=== PATIENT | male | born 1960 | race Caucasian/White ===

== ENCOUNTER 2020-09-08 14:15 | Inpatient (IN) | payer SELFPAY ==
[~2020-09-08] VITALS: Ht 193 cm; Wt 81.8 kg
[2020-09-08 15:04] LABS: BASO # 0.1 (0.0-0.2); BASO % 0.7 % (0.0-2.0); EOS # 0.1 (0.0-0.7); GRAN # 6.4 (1.4-6.5); GRAN % 79.7 % (42.2-75.2); HEMATOCRIT 30.8 % (42.0-52.0); HEMOGLOBIN 10.4 g/dl (13.5-18.0); LYMPH # 0.6 (1.2-3.4); LYMPH % 7.1 % (20.0-51.0); MEAN CELL VOLUME 108 fl (80.0-100.0); MEAN CORPUSCULAR HEMOGLOBIN 36 pg (27.0-31.0); MEAN CORPUSCULAR HGB CONC 34 g/dl (33.0-37.0); MONO # 0.9 (0.1-0.6); RED BLOOD COUNT 2.86 M/mm3 (4.20-5.60); REDCELL DISTRIBUTION WIDTH-CV 14.4 % (11.5-14.5)
[2020-09-08 15:05] LABS: PLATELET COUNT 47 K/mm3 (130-400)
[2020-09-08 15:18] LABS: ALBUMIN 3.1 gm/dL (3.5-5.0); BILIRUBIN,TOTAL 7.7 mg/dL (0.0-1.0); C-REACTIVE PROTEIN 1.1 mg/dL (0.0-0.9); CALCIUM 8.3 mg/dL (8.4-10.2); CREATININE, serum 0.9 (0.66-1.25); POTASSIUM 3.6 mmol/L (3.4-5.0)
[2020-09-08 15:35] LABS: COLLECTION METHOD CLEAN CATCH
[2020-09-08 15:41] LABS: MUCOUS Present /lpf; PH 5 (5-8); SQUAMOUS EPITHELIAL 0-2 /hpf; URINE APPEARANCE Hazy; URINE BACTERIA Occasional /hpf; URINE BILIRUBIN Positive (NEGATIVE); URINE BLOOD 1+ (NEGATIVE); URINE COLOR Amber; URINE GLUCOSE Negative (NEGATIVE); URINE KETONE Negative (NEGATIVE); URINE LEUKOCYTE ESTERASE 2+ (NEGATIVE); URINE NITRATE Negative (NEGATIVE); URINE PROTEIN(semi-quant) Negative (NEGATIVE); URINE UROBILINOGEN >=4.0 mg/dL (NEGATIVE)
[2020-09-08] MEDS ORDERED: CEPHALEXIN500 M1 PO ×2 (18:11)
--- NOTE | 2020-09-08 19:13 | NUR ---
RECEIVED REPORT FROM ED NURSE, TEODORA. AWAITING FOR PATIENT TO ARRIVE TO ROOM 343 FOR ADMIT.
--- NOTE | 2020-09-08 19:23 | NUR ---
PATIENT TO ROOM PER ED CART WITH PCT PRESENT. OBSERVED PATIENT WITH TREMORS, AND WEAK/MAX 1-2 ASST BY STAFF FOR STAND/PIVOT TRANSFER FROM CART TO HOSP BED. REPORTS HAS SOME CHILLING SENSATIONS, SKIN WARM TO TOUCH. DENIES CHEST PAIN/SOA/NAUSEA AT THIS TIME. REPORTS HAD SEIZURES WHEN GOING THROUGH ETOH WITHDRAWAL IN NOV 2019. TELE IN PLACE. INT TO RAC.
[2020-09-08 19:27] VITALS: BP 121/68; PULSE 95; TEMP 99.2
[2020-09-08 22:00] VITALS: BP 113/58; PULSE 93; TEMP 99.9
[2020-09-08 22:04] LABS: INR 1.8 (0.8-3.0); PROTHROMBIN TIME 19.9 SECONDS (9.7-12.8)
[2020-09-08 22:06] LABS: PARTIAL THROMBOPLASTIN TIME 39.5 SECONDS (26.0-37.0)
[2020-09-09] VITALS (13 sets, daily range): BP systolic 114–156; BP diastolic 60–87; PULSE 74–108; TEMP 98.1–101.2
--- NOTE | 2020-09-09 00:35 | NUR ---
PATIENT SLEEPING, VERY DROWSY WHEN AWAKE, SPEECH SLOW BUT CLEAR.
[2020-09-09 06:56] LABS: BASO # 0.1 (0.0-0.2); BASO % 0.9 % (0.0-2.0); EOS # 0.1 (0.0-0.7); EOS % 1.8 % (0-4.0); GRAN # 3.5 (1.4-6.5); GRAN % 63.9 % (42.2-75.2); LYMPH # 1.1 (1.2-3.4); LYMPH % 20.5 % (20.0-51.0); MEAN CELL VOLUME 107 fl (80.0-100.0); MEAN CORPUSCULAR HGB CONC 35 g/dl (33.0-37.0); MEAN PLATELET VOLUME 10.6 fl (7.4-10.4); MONO # 0.7 (0.1-0.6); MONO % 12.5 % (1.7-9.3); REDCELL DISTRIBUTION WIDTH-CV 14.5 % (11.5-14.5)
[2020-09-09 06:57] LABS: ALBUMIN 2.6 gm/dL (3.5-5.0); BILIRUBIN,TOTAL 7.1 mg/dL (0.0-1.0); CALCIUM 7.5 mg/dL (8.4-10.2); CREATININE, serum 0.77 (0.66-1.25); POTASSIUM 3.2 mmol/L (3.4-5.0); TOTAL PROTEIN 7.8 gm/dL (6.4-8.2)
[2020-09-09 06:59] LABS: HEMATOCRIT 27.8 % (42.0-52.0); HEMOGLOBIN 9.6 g/dl (13.5-18.0); MEAN CORPUSCULAR HEMOGLOBIN 37 pg (27.0-31.0)
[2020-09-09 07:01] LABS: PLATELET COUNT 38 K/mm3 (130-400)
--- NOTE | 2020-09-09 07:21 | NUR ---
CHANGE OF SHIFT REPORT GIVEN TO DAY SHIFT NURSE, AGATA WESTON.
--- NOTE | 2020-09-09 07:37 | NUR ---
YAZ HOOVER CALLED AND NOTIFIED OF CRITICAL PLATLET LEVEL OF 38. NO ORDERS GIVEN AT THIS TIME.
--- NOTE | 2020-09-09 09:10 | NUR ---
PATIENT TAKEN TO RADIOLOGY FOR IMAGING VIA BED. WILL WAIT FOR PATIENT ARRIVAL BACK TO ROOM 343.
--- NOTE | 2020-09-09 09:30 | NUR ---
PATIENT ARRIVED BACK TO ROOM 343 VIA BED FROM RADIOLOGY. PATIENT SETTELED INTO ROOM. CALL LIGHT WITHIN REACH.
--- NOTE | 2020-09-09 10:21 | NUR ---
YAZ DENNY PRESENT IN ROOM. PO TYLENOL GIVEN FOR LOW BACK PAIN RATED A 2/10. PATIENT UNABLE TO DESCRIBE PAIN, BUT STATES THAT IT IS CONSTANT. MORNING MEDICATIONS ADMINISTERED. THIS NURSE PRESENT WHILE IV PHYTONADIONE INFUSING. SHIFT ASSESSMENT COMPLETE. CALL LIGHT AND URINAL WITHIN REACH. NO ATIVAN NEEDED PER 0800 DETOX PROTOCOL.
--- NOTE | 2020-09-09 10:33 | NUR ---
PATIENT TOLERATED VITAMIN K INFUSION WITHOUT ANY ADVERSE REACTIONS.
--- NOTE | 2020-09-09 12:48 | NUR ---
First visit from the credit charge authorizer. Patient was asleep. Insurance Advisor prayed for the patient while standing outside their door. No other needs right now.
--- NOTE | 2020-09-09 17:10 | NUR ---
Senior Programmer met with patient to discuss discharge planning. Patient keeps his eyes closed during intake however is agreeable to answer questions. Patient lives in [place] and does not currently have a primary care physician. Patient is agreeble to have appointment made at [facility]. Patient did not have a preferred pharmacy as he states he normally does not take any medications. Patient does not use any DME and reports independence with ADLS. Patient does not normally wear oxygen but is currently requiring it. Patient lists his father, Adamaris (ph#[phone]) as an emergency contact. Patient is interested in completing DPOA, however does not want to complete it at this time. Patient plans to return home upon discharge and advised he has a ride home. Discharge Plan: Home
--- NOTE | 2020-09-09 18:28 | NUR ---
PATIENT HAD LARGE INCONTINENT URINE EPISODE. PATIENT CLEANED UP, NEW GOWN AND LINENS ON. PATIENT REPOSITIONED IN BED. BUE AND BLE ELEVATED ON PILLOWS. PATIENT SAT UP TO EAT DINNER. CALL LIGHT IN REACH. NO ADDITIONAL NEEDS AT THIS TIME.
--- NOTE | 2020-09-09 23:53 | NUR ---
Patient assessed aor1999. Sleepy, but awakens easliy. Alert and oriented x 4. Denies having pain and discomfort at this time. Peripheral IV to right AC with fluids running per orders. Denies having SOB and dyspnea. LS CTA in upper lobes, diminished in lower. Respirations even and unlabored. HRR. Telemetry in place. Capillary refill less than 3 seconds. Non-tenting skin turgor. BSAx4. Abdomen soft and non-tender. 1+ edema BLE. High fall risk precautions in place. Voices no questions, needs, or concerns at this time. Resting in bed with call light within reach.
[2020-09-10 01:56] LABS: TOTAL IRON BINDING CAPACITY 188 ug/dL (261-462)
[2020-09-10 02:44] LABS: IRON,SERUM 126 ug/dL (35-150)
[2020-09-10 04:00] VITALS: BP 135/75; PULSE 92; TEMP 97.1; TEMP 971
--- NOTE | 2020-09-10 05:15 | NUR ---
Patient has been resting in bed with call light within reach most of shift. Has been sleepy, but awakens easily. Denies having pain and discomfort. Patient has not been scoring high enough on detox protocol to receive PRN Ativan. Voices no questions, needs, or concerns at this time. Resting in bed with call light within reach.
[2020-09-10 06:29] VITALS: BP 138/72; PULSE 78; TEMP 97.6
[2020-09-10 06:57] LABS: BASO % 0.2 % (0.0-2.0); EOS % 0.3 % (0-4.0); GRAN # 4.1 (1.4-6.5); GRAN % 65.9 % (42.2-75.2); LYMPH # 1.3 (1.2-3.4); LYMPH % 21.3 % (20.0-51.0); MEAN CELL VOLUME 108 fl (80.0-100.0); MEAN CORPUSCULAR HGB CONC 35 g/dl (33.0-37.0); MEAN PLATELET VOLUME 10.9 fl (7.4-10.4); MONO # 0.7 (0.1-0.6); MONO % 11.7 % (1.7-9.3); REDCELL DISTRIBUTION WIDTH-CV 14.4 % (11.5-14.5)
[2020-09-10 06:58] LABS: HEMATOCRIT 26.9 % (42.0-52.0); HEMOGLOBIN 9.3 g/dl (13.5-18.0); MEAN CORPUSCULAR HEMOGLOBIN 37 pg (27.0-31.0)
[2020-09-10 07:00] LABS: PLATELET COUNT 47 K/mm3 (130-400)
[2020-09-10 07:11] LABS: ALBUMIN 2.5 gm/dL (3.5-5.0); BILIRUBIN,TOTAL 7.1 mg/dL (0.0-1.0); CALCIUM 7.9 mg/dL (8.4-10.2); CREATININE, serum 0.73 (0.66-1.25); POTASSIUM 3.3 mmol/L (3.4-5.0); TOTAL PROTEIN 7.7 gm/dL (6.4-8.2)
[2020-09-10 07:18] LABS: INR 1.7 (0.8-3.0); PROTHROMBIN TIME 19.1 SECONDS (9.7-12.8)
[2020-09-10 07:31] VITALS: BP 128/68; PULSE 79; TEMP 97.8
--- NOTE | 2020-09-10 08:00 | NUR ---
Patient resting in bed at this time. Patient is alert and oriented, answers questions appropriately. Patient denies pain or needs, call light within reach.
[2020-09-10 10:20] VITALS: BP 122/76; PULSE 87; TEMP 98
[2020-09-10] MEDS ORDERED: ROXICODONE 55 MG/TAB PO (11:52)
[2020-09-10] MEDS ORDERED: THIAMINE 1100 MG/TAB PO (11:53)
[2020-09-10] MEDS ORDERED: PREDNISOLO15 MG/5 M3 PO (11:53)
[2020-09-10] MEDS ORDERED: FOLIC ACID 11 MG/TA1 PO (11:53)
[2020-09-10] MEDS ORDERED: OMNICEF 300MG300 MG PO (11:54)
[2020-09-10] MEDS ORDERED: DUO-KAPS1 CAP PO (11:54)
[2020-09-10] MEDS ORDERED: K-DUR 10 MEQ T10 MEQ PO (11:55)
[2020-09-10 11:57] VITALS: BP 151/82; PULSE 88; TEMP 97.9
--- NOTE | 2020-09-10 12:30 | NUR ---
Patient up with x3 assist, walker and gait belt. Patient is very shaky, obvious tremors affecting whole body. Patient ambulated from bedside to bathroom door, patient needed recliner moved behind him as he was unable to turn around and return to bed. Patient denied pain, just states he feels weak and shaky. Denies further needs, call light within reach.
--- NOTE | 2020-09-10 15:04 | NUR ---
Cosmetic Sales Consultant attended clinical rounds with the team and patient is medically cleared for discharge, however has not been able to walk. DAVID collaborated with PTOswaldo and PTApolinar who do not feel patient is safe to return home at this time. Patient is currently self pay. DAVID consulted financial counseling to request a Medicaid application be completed for patient. DAVID contacted Rosa, IPR Director to inquire if they could take patient on a aleksandr basis. DAVID met with patient to follow up on DPOA-HC. Patient would like to complete DPOA-HC and designate his mother, Josefina (ph#[phone]). Patient declined to designate an alternate. Patient verbalized understanding of DPOA-HC and provided his signature on DPOA-HC form. DAVID and University TutorEvelia provided witness signature. DAVID provided original and copies to patient, then placed copy in patient's chart. Later on, DAVID followed up again with patient and patient's father, Adamaris (ph#[phone]). Patient's father, Adamaris advised that the week prior to patient admitting to the hospital, he just was sitting at home in his chair. Adamaris advised that patient's trailer is in very poor condition. DAVID made report to APS (intake #[id number]). DAVID followed up with Rosa IPR Director who advised administration gave approval for patient to admit to [facility]. Patient to admit to [facility] today. DAVID contacted patient's father and updated him. Discharge Plan: [facility]
[2020-09-10 15:15] VITALS: BP 150/85; PULSE 112; TEMP 98.7
--- NOTE | 2020-09-10 17:49 | NUR ---
Patient moved to IPR per orders. Patient belongings and gathered and moved to new room.
[2020-09-10 21:26] LABS: TRICYCLIC ANTIDEPRESS URINE NEGATIVE
[2020-09-11 11:50] LABS: ANA SCREEN with REFLEX Negative (Negative)
[2020-09-16 15:13] LABS: ANTISMOOTH MUSCLE ANTIBODY Negative (Negative)
[2020-09-17 02:27] LABS: CERULOPLASMIN 21 mg/dL (20-60)
== END 2020-09-10 17:55 | DRG 92 ==
LOC: COL.ER 14:15 → SURG 18:26
PROVIDERS: Family Medicine; Internal Medicine Gastroenterology; Student in an Organized Health Care Education/Training Program; ADMIT Student in an Organized Health Care Education/Training Program
DX: G72.1 Alcoholic myopathy (principal); K76.6 Portal hypertension; E87.1 Hypo-osmolality and hyponatremia; N39.0 Urinary tract infection, site not specified; D64.9 Anemia, unspecified; F10.10 Alcohol abuse, uncomplicated; R53.81 Other malaise; M47.9 Spondylosis, unspecified; M51.9 Unspecified thoracic, thoracolumbar and lumbosacral intervertebral disc disorder; D69.6 Thrombocytopenia, unspecified; R74.01 Elevation of levels of liver transaminase levels; K70.30 Alcoholic cirrhosis of liver without ascites; E87.6 Hypokalemia; K70.10 Alcoholic hepatitis without ascites; M48.061 Spinal stenosis, lumbar region without neurogenic claudication; G89.29 Other chronic pain; Z98.52 Vasectomy status
CPT/HCPCS: 99223-AI; 99233-AI; J0696; J2060; J2405; J3411; J3430; J3475; J7030; J7120; J7510; Q9967

== ENCOUNTER 2020-09-10 15:09 | Inpatient (IN) | payer SELFPAY ==
[~2020-09-10] VITALS: Ht 193 cm; Wt 84.9 kg
[~2020-09-10 15:09] MED LIST: CEPHALEXIN500 M1 PO; DUO-KAPS1 CAP PO; FOLIC ACID 11 MG/TA1 PO; K-DUR 10 MEQ T10 MEQ PO; OMNICEF 300MG300 MG PO; PREDNISOLO15 MG/5 M3 PO; ROXICODONE 55 MG/TAB PO; THIAMINE 1100 MG/TAB PO
--- NOTE | 2020-09-10 17:55 | NUR ---
Patient arrived to [facility] from surgical via wheelchair. Patient transferred to bed with walker, gaitbelt, and max 2 assist. Patient denies pain or needs, call light within reach.
--- NOTE | 2020-09-10 19:00 | NUR ---
RECEIVED CHANGE OF SHIFT REPORT FROM DAY SHIFT NURSE.
[2020-09-10 19:25] VITALS: BP 152/85; PULSE 92; TEMP 98.6
--- NOTE | 2020-09-10 20:00 | NUR ---
DENIES CHEST PAIN/SOA OR ANY NEEDS AT THIS TIME. BED ALARM ON WHEN IN BED.
[2020-09-11 05:08] VITALS: BP 121/75; PULSE 89; TEMP 97.6
--- NOTE | 2020-09-11 07:29 | NUR ---
CHANGE OF SHIFT REPORT GIVEN TO DAY SHIFT NURSEKERI RN.
--- NOTE | 2020-09-11 15:17 | NUR ---
Architecture Analyst met with patient and patient's parents, Adamaris (ph#[phone]) and Josefina (ph#[phone]) to complete intake as patient is new to [facility]. Patient lives alone in [place] and does not currently have a primary care physician. DAVID advised patient that an appointment was secured at [facility] on 10/31/20 at 1000. DAVID spoke with ENRICO Rios who advised the appointment is in patient's chart and discharge orders. Patient does not normally take any prescription medications. Patient has a cane and walker at home but isn't sure if the walker is a good fit. Patient's parents report they will bring it in for therapy to evaluate. Patient has appointment his step-motherJosefina as DPOA-HC and copy was placed in chart on the acute side. DAVID has consulted Financial Counseling for patient. Patient's step motherJosefina assisted patient in completing Financial Assistance Application, which DAVID scanned and emailed back to Paige Financial Counselor. DAVID will continue to follow.
[2020-09-11 15:59] VITALS: BP 113/73; PULSE 93; TEMP 97.6
--- NOTE | 2020-09-11 17:57 | NUR ---
Patient resting in bedside recliner at this time. Patient is alert and oriented, answers questions appropirately. Patient has had no complaints of pain or further needs, call light within reach.
--- NOTE | 2020-09-11 20:00 | NUR ---
PT SLEEPING WITH SHEET OVER HEAD. WAKES EASILY. ORIENTED BUT THOUGHT PROCESS DEFICIT NOTED. PT INCONTINENT OF URINE. PT REPORTS KNOWS WHEN HE HAS TO VOID. PROVIDED URINAL. GOAL TO KEEP CLEAN AND DRY. PT INCONT AT THIS TIME. PT REPORTS DOESNT KNOW WHEN HE GOES. UNABLE TO CONTROL BLADDER. NO SKIN ISSUES AT THIS TIME. CALL LIGHT IN REACH. BED ALARM SET.
[2020-09-12 05:27] VITALS: BP 136/77; PULSE 89; TEMP 98.1
--- NOTE | 2020-09-12 07:30 | NUR ---
PATIENT RESTING IN BED THIS MORNING. PATIENT DENYING ANY COMPLAINTS OF PAIN AT THIS TIME. MORNING SHIFT ASSESSMENT COMPLETED. AM MEDICATIONS ADMINISTERED. PATIENT DRESSED SELF IN BED. CALL LIGHT WITHIN REACH. PATIENT DENIES ADDITIONAL NEEDS AT THIS TIME.
--- NOTE | 2020-09-12 12:55 | NUR ---
PATIENT RESTING IN BED WITH SHEET OVER HIS HEAD. PATIENT AROUSES EASILY TO NAME. PATIENT DENYING PAIN THIS AFTERNOON. PATIENT EDUCATED ON POTASSIUM REPLACEMENT AND MAGNESIUM. NO ADDITIONAL NEEDS AT THIS TIME. CALL LIGHT IN REACH. BED ALARM ON.
--- NOTE | 2020-09-12 13:27 | NUR ---
Initial visit attempt; Patient indisposed. Emergency Room Physician Assistant left prayer card with God's blessings.
--- NOTE | 2020-09-12 16:30 | NUR ---
Golf Ball Winder followed up with patient before the weekend. Patient advised he has no questions or concerns at this time but would like to take a nap. SW will continue to follow.
[2020-09-12 17:04] VITALS: BP 130/77; PULSE 96; TEMP 97.6
--- NOTE | 2020-09-12 17:50 | NUR ---
PATIENT ASSISTED BACK TO BED WITH GB AND WALKER AND 1 MOD CGA TO PIVOT TRANSFER FROM CHAIR BACK TO BED. ICE WATER REFILLED. CALL LIGHT WITHIN REACH. BED ALARM ON. PATIENT DENIES ANY OTHER NEEDS AT THIS TIME.
--- NOTE | 2020-09-12 21:00 | NUR ---
PT C/O NO SLEEP W/O INTERRUPTION. PT RESTING IN BED. DENIES PAIN. NO TREMORS NOTED. INCONTINENT OF BLADDER. OCCASIONALLY WILL TRY TO URINAL. NO NEEDS AT THIS TIME. CALL LIGHT IN REACH. BED ALALRM SET.
[2020-09-13 05:00] VITALS: BP 133/76; PULSE 79; TEMP 98
--- NOTE | 2020-09-13 08:00 | NUR ---
Patient in bed resting. Alert and oritented x 3. Assessment complete. Denies pain at this time. Patient already dressed in bed. Denies further needs at this time.
[2020-09-13 17:34] VITALS: BP 130/71; PULSE 80; TEMP 98.4
--- NOTE | 2020-09-13 18:12 | NUR ---
Patient doing well throughout the day. minimal needs. Denies further needs at this time. Will report off to warehouse shift supervisor.
--- NOTE | 2020-09-13 21:35 | NUR ---
PT RESTING IN BED. DENIES WITHDRAW S/S. DENIES PAIN. CALL LIGHT IN REACH. BED ALALRM SET.
[2020-09-14 05:11] VITALS: BP 143/83; PULSE 80; TEMP 98.2
--- NOTE | 2020-09-14 05:58 | NUR ---
PT HAS RESTED THROUGH THE NIGHT. INCONTINENT X2 TGHIS SHIFT USES URINAL AT TIMES. NO UTI COMPLAINTS.
--- NOTE | 2020-09-14 07:20 | NUR ---
awake and sitting up in bed eating breakfast, denies needs at this time
[2020-09-14 07:28] LABS: BASO % 0.1 % (0.0-2.0); EOS # 0.1 (0.0-0.7); EOS % 1.5 % (0-4.0); GRAN # 4.9 (1.4-6.5); GRAN % 61.5 % (42.2-75.2); HEMOGLOBIN 10.6 g/dl (13.5-18.0); LYMPH # 1.7 (1.2-3.4); MEAN CELL VOLUME 106 fl (80.0-100.0); MEAN CORPUSCULAR HEMOGLOBIN 37 pg (27.0-31.0); MEAN CORPUSCULAR HGB CONC 35 g/dl (33.0-37.0); MEAN PLATELET VOLUME 10.1 fl (7.4-10.4); MONO # 1.2 (0.1-0.6); MONO % 15.5 % (1.7-9.3); PLATELET COUNT 77 K/mm3 (130-400); RED BLOOD COUNT 2.87 M/mm3 (4.20-5.60); REDCELL DISTRIBUTION WIDTH-CV 15.3 % (11.5-14.5)
[2020-09-14 07:32] LABS: HEMATOCRIT 30.5 % (42.0-52.0)
[2020-09-14 07:33] LABS: CREATININE, serum 0.75 (0.66-1.25); MAGNESIUM 1.9 mg/dL (1.6-2.3); POTASSIUM 3.2 mmol/L (3.4-5.0)
--- NOTE | 2020-09-14 08:30 | NUR ---
is resting in bed with covers over his head, arouses and full assessment completed, see interventions for further info, denies needs
--- NOTE | 2020-09-14 10:30 | NUR ---
appears to be sleeping, resp quiet and easy
--- NOTE | 2020-09-14 12:30 | NUR ---
up in bed having lunch, denies needs
--- NOTE | 2020-09-14 14:41 | NUR ---
appears to be sleeping
[2020-09-14 16:46] VITALS: BP 127/73; PULSE 76; TEMP 98.3
--- NOTE | 2020-09-14 17:14 | NUR ---
awake and sitting up in bed ready for supper
--- NOTE | 2020-09-14 18:45 | NUR ---
shift report given to ENRICO Ruelas
--- NOTE | 2020-09-15 03:24 | NUR ---
ASSISTED PT TO BR. HAD INCONT LOOSE THICK MEDIUM BROWN STOOL. HAS BEEN USING URINAL HIMSELF AND STAFF EMPTIES IT. PT SHAKY AND UNSTEADY GAIT.
[2020-09-15 04:07] VITALS: BP 143/81; PULSE 91; TEMP 97.6
--- NOTE | 2020-09-15 06:47 | NUR ---
shift report received from ENRICO Ruleas
--- NOTE | 2020-09-15 07:30 | NUR ---
watching TV and had breakfast, full assessment completed, full assessment completed, see interventions for further info, denies needs at this time
--- NOTE | 2020-09-15 11:15 | NUR ---
out of room with physical therapy
--- NOTE | 2020-09-15 14:01 | NUR ---
appears to be sleeping, in bed with lights off and covers over his head, resp quiet and easy
[2020-09-15 16:17] VITALS: BP 137/77; PULSE 88; TEMP 98.3
--- NOTE | 2020-09-15 18:45 | NUR ---
shift report given to ENRICO Valles
--- NOTE | 2020-09-15 18:56 | NUR ---
RECEIVED CHANGE OF SHIFT REPORT FROM DAY SHIFT NURSE.
--- NOTE | 2020-09-15 20:00 | NUR ---
PATIENT DENIES CHEST PAIN/SOA, DENIES NUMBNESS/TINGLING TO EXTREMITIES AT THIS TIME. DENIES DISCOMFORT AT THIS TIME. BED ALARM ON.
--- NOTE | 2020-09-16 03:08 | NUR ---
PATIENT SLEEPING, DOES NOT WAKE WHEN STAFF ENTERS ROOM TO EMPTY URINAL. BREATHING NONLABORED AND EVEN. BED ALARM ON.
--- NOTE | 2020-09-16 05:00 | NUR ---
DENIES ANY NEEDS OR DISCOMFORT AT THIS TIME. WATCHING TV. BED ALARM ON.
[2020-09-16 05:27] VITALS: BP 133/76; PULSE 71; TEMP 97.8
--- NOTE | 2020-09-16 07:15 | NUR ---
CHANGE OF SHIFT REPORT GIVEN TO DAY SHIFT NURSE, AGATA WESTON. BED ALARM ON.
--- NOTE | 2020-09-16 07:50 | NUR ---
PATIENT RESTING IN BED THIS MORNING. BED ALARMS ON. PATIENT DENIES COMPLAINTS OF PAIN. MORNING MEDICATIONS ADMINISTERED. CALL LIGHT WITHIN REACH. ICE WATER REFRESHED. PATIENT DENIES ADDITIONAL NEEDS AT THIS TIME.
--- NOTE | 2020-09-16 10:30 | NUR ---
PATIENT ASLEEP IN BED. PATIENT EASY TO AROUSE BY NAME. SHIFT ASSESSMENT COMPLETED. BED ALARM ON. CALL LIGHT WITHIN REACH. PATIENT EDUCATED ON PATIENT SAFETY AND CALLING FOR TRANSFERS WHEN THE PATIENT WANTS TO MOVE FROM THE CHAIR TO THE BED OR VICE VERSA. PATIENT ASSISTED HIMSELF FROM THE CHAIR TO THE BED SETTING OFF HIS CHAIR ALARM EARLIER THIS MORNING. PATIENT VERBALIZES UNDERSTANDING. CALL LIGHT WITHIN REACH. ALARMS ON. NO ADDITIONAL NEEDS AT THIS TIME.
--- NOTE | 2020-09-16 13:48 | NUR ---
Comic Book Artist scheduled a family meeting with patient's father and stepmother for tomorrow, 09/17/20 @[id number].
[2020-09-16 15:07] VITALS: BP 121/78; PULSE 77; TEMP 97.6
--- NOTE | 2020-09-16 18:02 | NUR ---
RECEIVED CHANGE OF SHIFT REPORT FROM DAY SHIFT NURSE.
--- NOTE | 2020-09-16 18:57 | NUR ---
PATIENT RESTING QUIETLY IN BED, DENIES ANY NEEDS OR DISCOMFORT AT THIS TIME. BED ALARM ON.
--- NOTE | 2020-09-16 20:00 | NUR ---
DENIES CHEST PAIN/SOA AT THIS TIME. BED ALARM ON WHILE IN BED. DENIES NUMBNESS/TINGLING TO EXTREMITIES AT THIS TIME.
--- NOTE | 2020-09-17 00:41 | NUR ---
SLEEPING, DOES NOT WAKE WHEN ROOM ENTERE BY STAFF. BREATHING NONLABORED AND EVEN. BED ALARM ON.
[2020-09-17 03:13] VITALS: BP 133/76; PULSE 81; TEMP 97.8
--- NOTE | 2020-09-17 03:18 | NUR ---
PATIENT AWAKE, NO NEEDS REPORTED AT THIS TIME. BED ALARM ON.
[2020-09-17 06:40] LABS: ALBUMIN 2.6 gm/dL (3.5-5.0); CALCIUM 8.2 mg/dL (8.4-10.2); CREATININE, serum 0.84 (0.66-1.25); POTASSIUM 3.4 mmol/L (3.4-5.0); TOTAL PROTEIN 7.8 gm/dL (6.4-8.2)
--- NOTE | 2020-09-17 07:01 | NUR ---
CHANGE OF SHIFT REPORT GIVEN TO DAY SHIFT NURSE, MARIBEL WESTON.
[2020-09-17 16:01] VITALS: BP 124/70; PULSE 79; TEMP 98.6
--- NOTE | 2020-09-17 16:21 | NUR ---
Admission QIM scores were reviewed by the team. Code of 5 chosen for oral hygiene was determined by team discussion to be the most usual performance before interventions for this patient during the assessment period. Code of 88 chosen for showering/bathing was determined by team discussion to be the most usual performance for this patient during the assessment period. Code of 4 chosen for sit to lying was determined by team discussion to be the most usual performance before interventions for this patient during the assessment period. Code of 4 chosen for lying to sitting side of bed was determined by team discussion to be the most usual performance before interventions for this patient during the assessment period. Code of 1 chosen for sit to stand was determined by team discussion to be the most usual performance before interventions for this patient during the assessment period. Code of 1 chosen for chair to bed transfers was determined by team discussion to be the most usual performance before interventions for this patient during the assessment period. Code of 1 chosen for walking 10 feet was determined by team discussion to be the most usual performance before interventions for this patient during the assessment period.
--- NOTE | 2020-09-17 16:56 | NUR ---
Insurance Commissioner attended patient's family conference which included his father Adamaris and step mother, Josefina. PT/OT/ST reviewed patient's progress and their current recommendations, which could change by time of discharge. Patient to discharge home on 09/24/20 with a home exercise program. Patient may need a walker or cane depending on his progress. OT is recommending a shower seat, which patient's parents have for him. Patient is interested in local AA meeting so SW to provide list of local meeting dates and times. Patient's family asked about patient's potential AA sponsor, Rodney spicer and DAVID obtained Teresa Nursing Translational Specialist's approval as long as patient only has two visitors per day. DAVID also emailed Paige Financial Counselor to follow up on financial assistance application as well as applying for disability.
--- NOTE | 2020-09-17 20:00 | NUR ---
PT SLEEPING. NO DISTRESS.
[2020-09-18 05:18] VITALS: BP 130/76; PULSE 79; TEMP 98.4
--- NOTE | 2020-09-18 15:03 | NUR ---
Laboratory Sampler followed up with Paige, Financial Counselor who advised patient's FAA is currently being processed. Paige advised that patient will need to contact Social Security Administration (ph#[phone]) to schedule an interview to apply for disability.
[2020-09-18 17:50] VITALS: BP 151/82; PULSE 84; TEMP 97.7
--- NOTE | 2020-09-18 21:00 | NUR ---
PT WATCHING TV. NO NEEDS AT THIS TIME.
[2020-09-19 04:44] VITALS: BP 128/72; PULSE 73; TEMP 98.2
--- NOTE | 2020-09-19 10:58 | NUR ---
Initial visit; Maverick thanked Health Education Coordinator for looking in on him and offering God's blessings. Patient states he has not spiritual needs to address at this time.
--- NOTE | 2020-09-19 16:08 | NUR ---
Army Ranger collaborated with Paige, Financial Counselor who advised she spoke with patient and his parents and was able to secure patient an appointment with Social Security on October 14. Patient does not qualify for Medicaid at this time as he is over the $2000 limit. SW also provided patient a list of local AA meetings.
[2020-09-19 17:35] VITALS: BP 130/74; PULSE 78; TEMP 98.8
--- NOTE | 2020-09-19 18:30 | NUR ---
Patient did well today. Denies pain and nausea. Eating and drinking without issues. Did well with therapy today. No other changes at this time. Call light within reach.
--- NOTE | 2020-09-20 05:14 | NUR ---
PATIENT DID WELL OVER NGIHT. DENIES PAIN. OUT TO BATHROOM WITH STAND BY ASSIT WITH SLIGHT UNSTEADY GAIT. TOLERATED DINER WELL. ENCOURAGE FLUID. WILL CONTINUE TO MONITOR.
[2020-09-20 05:49] VITALS: BP 126/68; PULSE 89; TEMP 97.9
--- NOTE | 2020-09-20 11:48 | NUR ---
Patient resting in bed, call light in reach and bed alarm set. Will continue to monitor.
--- NOTE | 2020-09-20 12:40 | NUR ---
Patient's urine is dark yellow/orange and is clear. Patient has no pain with urination and he reports that he had large output last night and it was light yellow. Will continue to monitor.
[2020-09-20 18:06] VITALS: BP 128/70; PULSE 89; TEMP 98.7
--- NOTE | 2020-09-20 19:52 | NUR ---
Patient's urine was line crew supervisor yellow this afternoon. Patient had two visitors this afternoon to talk with him about AA program. This was approved by Teresa, Gaggerman. Patient was a CGA with transfers using a gait belt. He was very shaky when ambulating. He used his call light appropriatly. Reported off to night nurse.
--- NOTE | 2020-09-21 05:35 | NUR ---
PATIENT CURRENTLY SLEEPING. BED ALARM ON. NO COMPLAINT OF PAIN OVER NIGHT. CALL LIGHT WITHIN REACH. USE THE URINAL TO URINATE. BED IN LOW POSITION. WILL CONTINUE TO MONITOR.
[2020-09-21 05:41] VITALS: BP 137/74; PULSE 61; TEMP 98
--- NOTE | 2020-09-21 07:39 | NUR ---
Patient independent with eating. Very talkative this morning. Denies pain or questions this morning.
--- NOTE | 2020-09-21 10:12 | NUR ---
Gave patient fresh ice water and removed empty coffee cup. Patient watching television at this time.
[2020-09-21 15:39] VITALS: BP 135/71; PULSE 89; TEMP 98.2
--- NOTE | 2020-09-21 19:30 | NUR ---
RECEIVED CHANGE OF SHIFT REPORT FROM DAY SHIFT NURSE.
--- NOTE | 2020-09-21 20:26 | NUR ---
Patient had an incontinent episode this afternoon and his bedding and clothing had to be changed. He tolerated his diet well. He requested to have his nicoderm patch changed from 9 am to 12 pm daily. See the change in the EMR. He reported that when he puts the patch on in the morning it makes him more shaky and jittery. Patient was a one assist with gait belt to the bathroom. Patient currently resting in bed, call light in reach and bed alarm set. Reported off to night nurse.
[2020-09-22 05:21] VITALS: BP 135/67; PULSE 78; TEMP 98.7
[2020-09-22 07:00] LABS: BASO % 0.2 % (0.0-2.0); EOS # 0.2 (0.0-0.7); EOS % 1.4 % (0-4.0); GRAN # 8.7 (1.4-6.5); GRAN % 68.3 % (42.2-75.2); HEMOGLOBIN 11.7 g/dl (13.5-18.0); LYMPH # 2.4 (1.2-3.4); LYMPH % 18.9 % (20.0-51.0); MEAN CELL VOLUME 106 fl (80.0-100.0); MEAN CORPUSCULAR HEMOGLOBIN 36 pg (27.0-31.0); MEAN CORPUSCULAR HGB CONC 34 g/dl (33.0-37.0); MEAN PLATELET VOLUME 9.3 fl (7.4-10.4); MONO # 1.4 (0.1-0.6); MONO % 10.7 % (1.7-9.3); PLATELET COUNT 147 K/mm3 (130-400); RED BLOOD COUNT 3.22 M/mm3 (4.20-5.60); REDCELL DISTRIBUTION WIDTH-CV 15.3 % (11.5-14.5)
--- NOTE | 2020-09-22 07:03 | NUR ---
CHANGE OF SHIFT REPORT GIVEN TO DAY SHIFT NURSEFARNAZ RN
[2020-09-22 07:04] LABS: HEMATOCRIT 34.2 % (42.0-52.0)
[2020-09-22 07:09] LABS: INR 1.5 (0.8-3.0); PROTHROMBIN TIME 16.9 SECONDS (9.7-12.8)
[2020-09-22 07:17] LABS: ALBUMIN 2.7 gm/dL (3.5-5.0); BILIRUBIN,TOTAL 4.5 mg/dL (0.0-1.0); CALCIUM 8.8 mg/dL (8.4-10.2); CREATININE, serum 0.81 (0.66-1.25); POTASSIUM 3.9 mmol/L (3.4-5.0); TOTAL PROTEIN 7.7 gm/dL (6.4-8.2)
[2020-09-22 08:00] LABS: MAGNESIUM 1.7 mg/dL (1.6-2.3)
--- NOTE | 2020-09-22 16:30 | NUR ---
Light Armored Vehicle Officer met with the patient and the patient's parents to follow up over the weekend. The patient does not have a walker and will need one ordered if it is recommended. No other needs at this time.
[2020-09-22 17:36] VITALS: BP 124/64; PULSE 92; TEMP 98.4
--- NOTE | 2020-09-22 19:10 | NUR ---
RECEIVED CHANGE OF SHIFT REPORT FROM DAY SHIFT NURSE.
--- NOTE | 2020-09-22 20:00 | NUR ---
REPORTS HAD LIGHT HEADED EPISODE WITH OT EARLIER TODAY W/BLURRY VISION. DENIES ANY LIGHT HEADED C/O AT THIS TIME. DENIES CHEST PAIN/SOA AT THIS TIME. DENIES NUMBNESS TO EXTREMITIES AT THIS TIME. DENIES ANY DISCOMFORT AT THIS TIME. BED ALARM ON WHEN IN BED.
--- NOTE | 2020-09-23 00:16 | NUR ---
PATIENT SLEEPING, DOES NOT WAKE WHEN ROOM ENTERED BY STAFF. BREATHING NONLABORED AND EVEN. BED ALARM ON.
--- NOTE | 2020-09-23 04:27 | NUR ---
PATIENT DOES NOT WAKE FROM SLEEP WHEN STAFF ENTERS ROOM. BREATHING IS NONLABORED AND EVEN. BED ALARM ON.
[2020-09-23 05:29] VITALS: BP 134/71; PULSE 87; TEMP 97.8
--- NOTE | 2020-09-23 07:12 | NUR ---
CHANGE OF SHIFT REPORT GIVEN TO DAY SHIFT NURSE, LONI WESTON.
--- NOTE | 2020-09-23 07:34 | NUR ---
Patient resting in bed call light in reach awaiting morning therapies.
--- NOTE | 2020-09-23 09:37 | NUR ---
Patient's father stopped by to drop off some items for patient. Patient currently working ST at this time.
--- NOTE | 2020-09-23 11:28 | NUR ---
Follow-up visit; Patient states he is doing alright today. Infection Control Specialist wished him God's blessings.
--- NOTE | 2020-09-23 13:37 | NUR ---
Patient attended all therapies and has tolerated his meals. He will be working with PT and OT this afternoon.
[2020-09-23 17:33] VITALS: BP 127/69; PULSE 96; TEMP 98.2
--- NOTE | 2020-09-23 19:00 | NUR ---
RECEIVED CHANGE OF SHIFT REPORT FROM DAY SHIFT NURSE. BED ALALRM ON WHEN IN BED.
--- NOTE | 2020-09-23 20:00 | NUR ---
DENIES CHEST PAIN/SOA AT THIS TIME. PATIENT UP IN ROOM AD DEBBI WITH NO REPORTED PROBLEMS OR CONCERNS. DENIES ANY DISCOMFORT CURRENTLY.
--- NOTE | 2020-09-24 01:51 | NUR ---
PATIENT SLEEPING, DOES NOT WAKE WHEN STAFF ENTER ROOM. BREATHING NONLABORED AND EVEN. PATIENT UP IN ROOM AD DEBBI WITH NO REPORTED PROBLEMS OR CONCERNS.
[2020-09-24 04:00] VITALS: BP 150/83; PULSE 76; TEMP 99
--- NOTE | 2020-09-24 06:30 | NUR ---
Report received from ENRICO Ferguson. pT in bed resting, denies needs, will continue to monitor.
--- NOTE | 2020-09-24 07:26 | NUR ---
CHANGE OF SHIFT REPORT GIVEN TO DAY SHIFT NURSE, BLANCA WESTON.
[2020-09-24] MEDS ORDERED: K-TAB20 PO (08:27)
[2020-09-24] MEDS ORDERED: PREDNISOLO15 MG/5 M3 PO (08:28)
--- NOTE | 2020-09-24 09:27 | NUR ---
Assessment charted. PT anticipating discharge today home. Resting in chair at deborah eof bed, denies pain, will continue to monitor.
--- NOTE | 2020-09-24 12:41 | NUR ---
Dishcarge teaching completed at this time. pt received discharge packet, reviewed new scripts sent to pharmacy, f/u appointments and labs. Answered all questions. Pt will be escorted out via w/c with all belongings by IPR staff. Family to drive home, criteria met.
--- NOTE | 2020-09-24 13:54 | NUR ---
Discharge QIM scores were reviewed by the team. Code of 6 chosen for toilet hygiene was determined by team discussion to be the most usual performance for this patient during the assessment period. Code of 6 chosen for toileting transfers was determined by team discussion to be the most usual performance for this patient during the assessment period. Code of 6 chosen for shower/bathe self was determined by team discussion to be the most usual performance for this patient during the assessment period. Code of 6 chosen for lower body dressing was determined by team discussion to be the most usual performance for this patient during the assessment period. Code of 6 for sit to stand was determined by team discussion to be the most usual performance for this patient during the assessment period. Code of 6 for chair/bed to chair transfers was determined by team discussion to be the most usual performance for this patient during the assessment period. Code of 6 chosen for walk 10 feet on uneven surface was determined by team discussion to be the most usual performance for this patient during the assessment period. Code of 6 chosen for walk 50 feet w/ 2 turns was determined by team discussion to be the most usual performance for this patient during the assessment period. Code of 6 chosen for walk 150 feet was determined by team discussion to be the most usual performance for this patient during the assessment period.--PD José Luis
== END 2020-09-24 13:00 | disposition home or self-care (01) | DRG 948 ==
PROVIDERS: Physician Assistant; ADMIT Internal Medicine
DX: R53.81 Other malaise (principal); E87.1 Hypo-osmolality and hyponatremia; G72.1 Alcoholic myopathy; N39.0 Urinary tract infection, site not specified; K76.6 Portal hypertension; D69.6 Thrombocytopenia, unspecified; D53.9 Nutritional anemia, unspecified; E87.6 Hypokalemia; K70.10 Alcoholic hepatitis without ascites; F10.10 Alcohol abuse, uncomplicated; K74.60 Unspecified cirrhosis of liver; M54.5 Low back pain; M47.9 Spondylosis, unspecified; R74.01 Elevation of levels of liver transaminase levels; Z79.891 Long term (current) use of opiate analgesic; Z79.52 Long term (current) use of systemic steroids
CPT/HCPCS: 99231-AI; 99232-AI; 99239; J7510

== ENCOUNTER 2020-11-11 08:14 | Day surgery (SDC) | payer SELFPAY ==
[~2020-11-11] VITALS: Ht 190.5 cm; Wt 87.3 kg
[~2020-11-11 08:14] MED LIST changes: +K-TAB20 PO
[2020-11-11 09:11] VITALS: BP 121/79; PULSE 100; TEMP 97.2
[2020-11-11 10:10] VITALS: BP 16/76; PULSE 86; TEMP 97
[2020-11-11 10:15] VITALS: BP 119/71; PULSE 82
[2020-11-11 10:30] VITALS: BP 133/87; PULSE 87
[2020-11-11 10:45] VITALS: BP 136/73; PULSE 84
[2020-11-11 11:00] VITALS: BP 129/78; PULSE 89
--- NOTE | 2020-11-11 11:27 | NUR ---
1010 Pt arrives back from endo procedure to [facility] [employer] [facility] via cart. Pt ambulates from cart to recliner with RN assist. Monitors on and alarms set. Call light within reach. Pt requests pudding, water, and juice. Report received from Beth. Pt's dad present in room. Pt has no complaints of pain or nausea. 1030 Pt taking food and drink well. No complications mentioned. 1115 Discharge instructions given to pt and dad. All questions answered to their satisfaction. Handed to them are a thank you card and discharge information. 1127 Pt transferred out of hospital via wheelchair and Kyle assist to private vehicle driven by dad.
== END 2020-11-11 11:27 | disposition home or self-care (01) ==
LOC: SDCO 08:14
DX: Z12.11 Encounter for screening for malignant neoplasm of colon (principal); K64.0 First degree hemorrhoids; K76.6 Portal hypertension; I85.00 Esophageal varices without bleeding; K31.89 Other diseases of stomach and duodenum; K70.30 Alcoholic cirrhosis of liver without ascites; R56.9 Unspecified convulsions; G72.1 Alcoholic myopathy; M47.896 Other spondylosis, lumbar region; F17.210 Nicotine dependence, cigarettes, uncomplicated; Z20.822 Contact with and (suspected) exposure to COVID-19; Z79.899 Other long term (current) drug therapy; Z98.52 Vasectomy status
CPT/HCPCS: J2704; J3010; J7030